=== PATIENT | female | born 1985 | race Caucasian/White ===

== ENCOUNTER → 2019-01-17 | Outpatient (CLI) | payer OTHER ==
--- NOTE | 2019-01-17 20:44 | MR ---
EXAMINATION TYPE: MR lumbar spine wo con DATE OF EXAM: 01/17/2019 COMPARISON: Plain film 09/18/2015 HISTORY: Low back pain TECHNIQUE: Multiplanar, multisequence images of the lumbar spine were acquired. L1-L2: Normal disc appearance without desiccation. No herniation, protrusion or disc bulging. No ca nal stenosis is present. Foramina are patent bilaterally. L2-L3: Normal disc appearance without desiccation. No herniation, protrusion or disc bulging. No ca nal stenosis is present. Foramina are patent bilaterally. L3-L4: Normal disc appearance without desiccation. No herniation, protrusion or disc bulging. No ca nal stenosis is present. Foramina are patent bilaterally. L4-L5: Normal disc appearance without desiccation. No herniation, protrusion or disc bulging. No ca nal stenosis is present. Foramina are patent bilaterally. L5-S1: Minimal posterior broad-based disc bulge is present, no significant central stenosis or forami nal encroachment. Lumbar segments are intact. No paraspinal masses are identified. Conus medullaris has a normal appe arance, T12-L1 there is a questionable focus of increased signal in the right side of the spinal cord on T2-weighted sequences in the axial data set. Pedicle on the right at L5 shows increased signal on T1 and T2-weighted sequences likely due to hemangioma. IMPRESSION: Possible cord signal abnormality. Consider postcontrast imaging. Mild degenerative disc disease.
--- NOTE | 2019-01-17 21:27 | MR ---
MR right hip HISTORY: Right hip pain Multiplanar multisequence imaging through the right hip or graph no comparisons There is some mild increased signal present at the insertion of the gluteus tendon at the greater tub erosity. Minimal joint fluid is likely physiologic. Bone marrow signal is maintained. Articular carti jakub is normal. Acetabular labrum thought to be intact. Uterus and adnexal structures are normal. Conjoined tendons at the origin of the hamstring musculatur e are normal. No free fluid in the pelvis. No pelvic adenopathy. IMPRESSION: Findings may represent mild tendinosis at the gluteus medius tendon insertion.
== END | disposition home or self-care (01) ==
LOC: RADMRIMAIN 18:58
PROVIDERS: ATTEND Internal Medicine
DX: M51.36 Other intervertebral disc degeneration, lumbar region (principal); M25.551 Pain in right hip
CPT/HCPCS: 72148

== ENCOUNTER 2021-01-01 17:57 | Emergency (ER) | payer OTHER ==
[2021-01-01 18:13] VITALS: BP 134/86; PULSE 110; TEMP 98.7
[2021-01-01] MEDS ORDERED: ALBUTEROL HFA INHALER INHALATION STA (18:49)
--- NOTE | 2021-01-01 18:56 | ED ---
General Adult HPI - General Chief complaint: Upper Respiratory Infection Stated complaint: COVID+/increased SOB Time Seen by Provider: 01/01/21 18:35 Source: patient, RN notes reviewed Mode of arrival: ambulatory Limitations: no limitations - History of Present Illness Initial comments: patient is a pleasant 35-year-old female presenting to the emergency Department with complaints of cough and difficulty in breathing. Onset of symptoms was more than 8 days ago as she was diagnosed 8 days ago. Patient has cough that is dry. Patient has some difficulty in breathing. Patient is having fever and chills and myalgias. Patient has nasal congestion. Loss of smell. Patient had one episode of diarrhea. No nausea vomiting. Patient has been taking Tylenol for fever. Patient has also been taking zinc and vitamin C. - Related Data Previous Rx's Medication Instructions Recorded Albuterol Sulfate [Albuterol 2 puff INHALATION Q6H PRN #1 01/01/21 Sulfate Hfa] inhaler Allergies Allergy/AdvReac Type Severity Reaction Status Date / Time azithromycin Allergy Rash/Hives Verified 01/01/21 18:11 Sulfa (Sulfonamide Allergy Unknown Verified 01/01/21 18:11 Antibiotics) Review of Systems ROS Statement: Those systems with pertinent positive or pertinent negative responses have been documented in the HPI. ROS Other: All systems not noted in ROS Statement are negative. Constitutional: Reports: fever, chills Eyes: Denies: eye pain ENT: Denies: ear pain Respiratory: Reports: cough, dyspnea Cardiovascular: Denies: chest pain Endocrine: Reports: fatigue Gastrointestinal: Denies: abdominal pain, nausea, vomiting Genitourinary: Denies: dysuria Musculoskeletal: Denies: back pain Skin: Denies: rash Neurological: Denies: weakness Past Medical History Past Medical History: No Reported History History of Any Multi-Drug Resistant Organisms: None Reported Past Surgical History: Section Past Psychological History: No Psychological Hx Reported Smoking Status: Never smoker Past Alcohol Use History: None Reported, Occasional Past Drug Use History: None Reported General Exam Limitations: no limitations General appearance: alert, in no apparent distress Head exam: Present: atraumatic Eye exam: Present: normal appearance Neck exam: Present: normal inspection Respiratory exam: Present: normal lung sounds bilaterally Cardiovascular Exam: Present: tachycardia GI/Abdominal exam: Present: soft. Absent: tenderness Extremities exam: Present: normal inspection. Absent: pedal edema, calf tenderness Neurological exam: Present: alert Psychiatric exam: Present: normal affect, normal mood Skin exam: Present: normal color Course Vital Signs 01/01/21 01/01/21 18:11 19:10 Temperature 98.7 F Pulse Rate 110 H Respiratory 18 20 Rate Blood Pressure 134/86 O2 Sat by Pulse 96 Oximetry Medical Decision Making - Medical Decision Making Patient reevaluated and updated. Patient states she does feel good enough to go home and requests discharge. - Radiology Data Radiology results: image reviewed (Chest x-ray does show bilateral Fluffy infiltrates) Disposition Clinical Impression: Pneumonia due to COVID-19 virus Disposition: HOME SELF-CARE Condition: Stable Instructions (If sedation given, give patient instructions): Upper Respiratory Infection (ED) Additional Instructions: Continue vitamin C and zinc. Please add vitamin D 5000 international units daily. Continue [id number] Tylenol as needed. Prescription for inhaler has been sent to pharmacy, [id number]. Return for difficulty in breathing, uncontrolled fevers, not tolerating fluids, worsening symptoms or other concerns. Prescriptions: Albuterol Sulfate [Albuterol Sulfate Hfa] 2 puff INHALATION Q6H PRN #1 inhaler PRN Reason: Shortness Of Breath Is patient prescribed a controlled substance at d/c from ED?: No Referrals: Joe Ventura MD [Primary Care Provider] - 1-2 days Time of Disposition: 19:35
--- NOTE | 2021-01-01 19:03 | XR ---
EXAMINATION TYPE: XR chest 2V DATE OF EXAM: 01/01/2021 COMPARISON: NONE HISTORY: Fever and cough. Positive Covid. TECHNIQUE: Frontal and lateral views of the chest are obtained. FINDINGS: There are bilateral mild to moderate patchy opacities in the mid to lower lungs. No pleura l effusion, or pneumothorax seen. The cardiac silhouette size is within normal limits. The osseous structures are intact. IMPRESSION: Mild to moderate bilateral infiltrates.
[2021-01-01 19:12] VITALS: RESP 20
== END 2021-01-01 20:15 | disposition home or self-care (01) ==
LOC: EC 17:57
DX: U07.1 COVID-19 (principal); J12.82 Pneumonia due to coronavirus disease 2019; Z88.1 Allergy status to other antibiotic agents; Z88.2 Allergy status to sulfonamides
CPT/HCPCS: 71046; 94640; 99285

== ENCOUNTER 2021-09-16 17:37 | Emergency (ER) | payer OTHER ==
[2021-09-16 17:49] VITALS: TEMP 98.8
[2021-09-16] MEDS ORDERED: SODIUM CHLORIDE 0.9% 1,000 ML IV STA (19:50)
[2021-09-16 20:15] LABS: Basophils # (A) 0.1 k/uL (0-0.2); Basophils % (A) 0 %; Eosinophils # (A) 0.1 k/uL (0-0.7); Eosinophils % (A) 1 %; HCT 42.7 % (34.0-46.0); HGB 13.7 gm/dL (11.4-16.0); Lymphocytes % (A) 27 %; MCHC 32.1 g/dL (31.0-37.0); MCV 90.4 fL (80.0-100.0); Mean Platelet Volume 6.7; Monocytes # (A) 0.4 k/uL (0-1.0); Monocytes % (A) 3 %; Neutrophils # (A) 7.3 k/uL (1.3-7.7); Neutrophils % (A) 66 %; Platelet Count 435 k/uL (150-450); RBC 4.73 m/uL (3.80-5.40); RDW 12.1 % (11.5-15.5)
[2021-09-16 20:24] LABS: ALT 17 U/L (4-34); AST 20 U/L (14-36); African American GFR (CKD) >90 (>60 ml/min/1.73 sqM); Albumin 4.6 g/dL (3.5-5.0); Alkaline Phosphatase 75 U/L (38-126); Anion Gap 7 mmol/L; Blood Urea Nitrogen 15 mg/dL (7-17); Calcium 9.8 mg/dL (8.4-10.2); Carbon Dioxide 26 mmol/L (22-30); Chloride 107 mmol/L (98-107); Glucose 119 mg/dL (74-99); Lipase 76 U/L (23-300); Magnesium 2.1 mg/dL (1.6-2.3); Non-African American GFR(CKD) >90 (>60 ml/min/1.73 sqM); Potassium 4.3 mmol/L (3.5-5.1); Sodium 140 mmol/L (137-145); Total Bilirubin 0.3 mg/dL (0.2-1.3); Total Protein 7.9 g/dL (6.3-8.2)
[2021-09-16 20:40] LABS: HCG,Quantitative Serum <2.4 mIU/mL
--- NOTE | 2021-09-16 20:40 | ED ---
GI Bleed HPI - General Chief complaint: GI Bleed Stated complaint: Rectal Bleeding Time Seen by Provider: 09/16/21 19:32 Source: patient, RN notes reviewed Mode of arrival: ambulatory Limitations: no limitations - History of Present Illness Initial comments: Patient is a 36-year-old female that presents emergency room complaining of bright red blood per rectum 3 days. She notes that yesterday which with the bathroom to urinate she felt pressure in her rectum and then noted blood in the toilet and on the toilet paper. She notes that this is the first time this has happened. She notes that she does not have a history of hemorrhoids diverticulosis or other GI bleeds. She notes minimal abdominal discomfort in the lower abdomen. She is otherwise well-appearing in no apparent distress or pain. She denied chest pain shortness breath headache nausea vomiting diarrhea constipation fever fatigue chills. - Related Data Home Medications Medication Instructions Recorded Confirmed Vitamin C/Biotin [Hair, Skin and 1 tab PO DAILY 09/16/21 09/16/21 Nails Chew] Allergies Allergy/AdvReac Type Severity Reaction Status Date / Time azithromycin Allergy Rash/Hives Verified 09/16/21 20:39 Sulfa (Sulfonamide Allergy Unknown Verified 09/16/21 20:39 Antibiotics) Review of Systems ROS Statement: Those systems with pertinent positive or pertinent negative responses have been documented in the HPI. ROS Other: All systems not noted in ROS Statement are negative. Past Medical History Past Medical History: No Reported History Additional Past Medical History / Comment(s): CP History of Any Multi-Drug Resistant Organisms: None Reported Past Surgical History: Section Past Psychological History: No Psychological Hx Reported Smoking Status: Never smoker Past Alcohol Use History: Occasional Past Drug Use History: None Reported General Exam Limitations: no limitations General appearance: alert, in no apparent distress Head exam: Present: atraumatic, normocephalic, normal inspection Eye exam: Present: normal appearance, PERRL, EOMI. Absent: scleral icterus, c onjunctival injection, periorbital swelling ENT exam: Present: normal exam, mucous membranes moist Neck exam: Present: normal inspection Respiratory exam: Present: normal lung sounds bilaterally. Absent: respiratory distress, wheezes, rales, rhonchi, stridor GI/Abdominal exam: Present: soft, tenderness (Minimal lower abdomen), normal bowel sounds. Absent: distended, guarding, rebound, rigid Rectal exam: Present: normal inspection, normal rectal tone, hemorrhoids Extremities exam: Present: normal inspection, full ROM, normal capillary refill. Absent: tenderness, pedal edema, joint swelling, calf tenderness Neurological exam: Present: alert, oriented X3 Psychiatric exam: Present: normal affect, normal mood Skin exam: Present: warm, dry, intact, normal color. Absent: rash Course Vital Signs 09/16/21 17:47 Temperature 98.8 F Pulse Rate 93 Respiratory 20 Rate Blood Pressure 154/97 O2 Sat by Pulse 97 Oximetry Medical Decision Making - Medical Decision Making 36-year-old female complaining of bright red blood per rectum 3 days per Labs, CT abdomen and pelvis, 1 L normal saline ordered. Labs unremarkable. Computed tomography scan negative for any acute abdominal process. Occult blood test positive per On physical exam there was internal hemorrhoids. Patient was informed that if these get irritated a complete. Case discussed with Dr. Taylor, patient discharge home with follow-up primary care. - Lab Data Result diagrams: 09/16/21 19:58 09/16/21 19:58 Lab Results 09/16/21 09/16/21 09/16/21 Range/Units 19:58 19:58 19:58 WBC 11.0 H (3.8-10.6) k/uL RBC 4.73 (3.80-5.40) m/uL Hgb 13.7 (11.4-16.0) gm/dL Hct 42.7 (34.0-46.0) % MCV 90.4 (80.0-100.0) fL MCH 29.0 (25.0-35.0) pg MCHC 32.1 (31.0-37.0) g/dL RDW 12.1 (11.5-15.5) % Plt Count 435 (150-450) k/uL MPV 6.7 Neutrophils % 66 % Lymphocytes % 27 % Monocytes % 3 % Eosinophils % 1 % Basophils % 0 % Neutrophils # 7.3 (1.3-7.7) k/uL Lymphocytes # 3.0 (1.0-4.8) k/uL Monocytes # 0.4 (0-1.0) k/uL Eosinophils # 0.1 (0-0.7) k/uL Basophils # 0.1 (0-0.2) k/uL APTT 24.8 (22.0-30.0) sec Sodium (137-145) mmol/L Potassium (3.5-5.1) mmol/L Chloride (98-107) mmol/L Carbon Dioxide (22-30) mmol/L Anion Gap mmol/L BUN (7-17) mg/dL Creatinine (0.52-1.04) mg/dL Est GFR (CKD-EPI)AfAm (>60 ml/min/1.73 sqM) Est GFR (CKD-EPI)NonAf (>60 ml/min/1.73 sqM) Glucose (74-99) mg/dL Calcium (8.4-10.2) mg/dL Magnesium (1.6-2.3) mg/dL Total Bilirubin (0.2-1.3) mg/dL AST (14-36) U/L ALT (4-34) U/L Alkaline Phosphatase (38-126) U/L Troponin I (0.000-0.034) ng/mL Total Protein (6.3-8.2) g/dL Albumin (3.5-5.0) g/dL Lipase (23-300) U/L HCG, Quant mIU/mL Stool Occult Blood Positive H (Negative) 09/16/21 09/16/21 Range/Units 19:58 19:58 WBC (3.8-10.6) k/uL RBC (3.80-5.40) m/uL Hgb (11.4-16.0) gm/dL Hct (34.0-46.0) % MCV (80.0-100.0) fL MCH (25.0-35.0) pg MCHC (31.0-37.0) g/dL RDW (11.5-15.5) % Plt Count (150-450) k/uL MPV Neutrophils % % Lymphocytes % % Monocytes % % Eosinophils % % Basophils % % Neutrophils # (1.3-7.7) k/uL Lymphocytes # (1.0-4.8) k/uL Monocytes # (0-1.0) k/uL Eosinophils # (0-0.7) k/uL Basophils # (0-0.2) k/uL APTT (22.0-30.0) sec Sodium 140 (137-145) mmol/L Potassium 4.3 (3.5-5.1) mmol/L Chloride 107 (98-107) mmol/L Carbon Dioxide 26 (22-30) mmol/L Anion Gap 7 mmol/L BUN 15 (7-17) mg/dL Creatinine 0.53 (0.52-1.04) mg/dL Est GFR (CKD-EPI)AfAm >90 (>60 ml/min/1.73 sqM) Est GFR (CKD-EPI)NonAf >90 (>60 ml/min/1.73 sqM) Glucose 119 H (74-99) mg/dL Calcium 9.8 (8.4-10.2) mg/dL Magnesium 2.1 (1.6-2.3) mg/dL Total Bilirubin 0.3 (0.2-1.3) mg/dL AST 20 (14-36) U/L ALT 17 (4-34) U/L Alkaline Phosphatase 75 (38-126) U/L Troponin I <0.012 (0.000-0.034) ng/mL Total Protein 7.9 (6.3-8.2) g/dL Albumin 4.6 (3.5-5.0) g/dL Lipase 76 (23-300) U/L HCG, Quant <2.4 mIU/mL Stool Occult Blood (Negative) - Radiology Data Radiology results: report reviewed, image reviewed CT abdomen and pelvis: Right ovarian cyst. No solid pelvic mass. I do not see cause for rectal bleeding. No evidence for clots. Disposition Clinical Impression: Hemorrhoid, Bright red blood per rectum Disposition: HOME SELF-CARE Condition: Stable Instructions (If sedation given, give patient instructions): Gastrointestinal Bleeding (ED) Additional Instructions: Please return to the Emergency Department if symptoms worsen or any other concerns. Follow-up with primary care 1-2 days. Follow-up with GI specialist this is possible. Increase dietary fiber in oral fluids. Is patient prescribed a controlled substance at d/c from ED?: No Referrals: Joe Ventura MD [Primary Care Provider] - 1-2 days Time of Disposition: 22:56
--- NOTE | 2021-09-16 21:42 | CT ---
EXAMINATION TYPE: CT abdomen pelvis w con DATE OF EXAM: 09/16/2021 COMPARISON: None HISTORY: Rectal bleeding, clotting CT DLP: 597 mGycm Automated exposure control for dose reduction was used. CONTRAST: Performed with IV Contrast, patient injected with 100 mL of Isovue 300. Images obtained from the diaphragm to the floor the pelvis with IV contrast. Lung bases are clear. There is no pleural effusion. Heart size is normal. There is no pericardial eff usion. Liver spleen stomach pancreas gallbladder appear intact. Bile ducts are not dilated. There is no adrenal mass. Kidneys show satisfactory contrast opacification. There is no hydronephrosi s. Delayed images show normal renal excretion. There is no retroperitoneal adenopathy. Ureters are no t dilated. Bladder distends smoothly. There is 1.7 cm cyst on the right ovary. Uterus is anteverted. There is no free fluid in the pelvis. There is no inguinal hernia. Lumbar vertebra have normal spacing and alignment. Posterior elements are intact. The bony pelvis is intact. Hip joints are intact. Facet joints are intact. There is no mesenteric edema. There is no ascites or free air. There is no bowel obstruction. Appendi x appears normal. IMPRESSION: Right ovarian cyst. No solid pelvic mass. I do not see a cause for rectal bleeding. No evidence of co litis.
[2021-09-17 00:47] VITALS: BP 114/82; PULSE 89; RESP 18
== END 2021-09-16 23:25 | disposition home or self-care (01) ==
LOC: EC 17:37
DX: K64.8 Other hemorrhoids (principal); K62.5 Hemorrhage of anus and rectum; Z88.2 Allergy status to sulfonamides
CPT/HCPCS: 36415; 80053; 83690; 83735; 84484; 85025; 85730; 82272; 84702; 74177; 99285; 96360; Q9967

== ENCOUNTER 2023-09-15 11:18 | Emergency (ER) | payer OTHER ==
[2023-09-15 12:09] LABS: Basophils % (A) 0 %; Eosinophils # (A) 0.1 k/uL (0-0.7); Eosinophils % (A) 1 %; HGB 12.2 gm/dL (11.4-16.0); Lymphocytes # (A) 2.4 k/uL (1.0-4.8); Lymphocytes % (A) 25 %; MCH 29.4 pg (25.0-35.0); MCV 89.1 fL (80.0-100.0); Mean Platelet Volume 7.3; Monocytes # (A) 0.4 k/uL (0-1.0); Monocytes % (A) 4 %; Neutrophils # (A) 6.5 k/uL (1.3-7.7); Neutrophils % (A) 69 %; Platelet Count 414 k/uL (150-450); RBC 4.16 m/uL (3.80-5.40); RDW 12.7 % (11.5-15.5); WBC 9.4 k/uL (3.8-10.6)
[2023-09-15 12:18] LABS: ALT 17 U/L (4-34); AST 18 U/L (14-36); African American GFR (CKD) >90 (>60 ml/min/1.73 sqM); Alkaline Phosphatase 77 U/L (38-126); Anion Gap 10 mmol/L; Blood Urea Nitrogen 14 mg/dL (7-17); Carbon Dioxide 27 mmol/L (22-30); Chloride 103 mmol/L (98-107); Glucose 138 mg/dL (74-99); Non-African American GFR(CKD) >90 (>60 ml/min/1.73 sqM); Potassium 3.6 mmol/L (3.5-5.1); Sodium 140 mmol/L (137-145); Total Bilirubin 0.4 mg/dL (0.2-1.3)
[2023-09-15 12:31] LABS: Amorphous Sediment,Urine Rare /hpf; Appearance,Urine Clear (Clear); Bacteria,Urine Moderate /hpf; Color,Urine Yellow; Glucose,Urine (UA) Negative (Negative); Ketones,Urine Negative (Negative); Mucus,Urine Many /hpf; PH, Urine 8.5 (5.0-8.0); Protein,Urine 1+ (Negative); RBC,Urine 3 /hpf (0-5); Squamous Epithelial Cell,Urine 39 /hpf (0-4)
[2023-09-15 12:32] LABS: Bilirubin,Urine Negative (Negative); Blood,Urine Negative (Negative); Leukocyte Esterase,Urine Negative (Negative); Nitrite,Urine Negative (Negative); Urobilinogen,Urine <2.0 mg/dL (<2.0)
[2023-09-15] MEDS ORDERED: MAG HYDROX/AL HYDROX/SIMETH 30 ML, HYOSCYAMINE ELIXIR 10 ML, LIDOCAINE 2% GLYDO JELLY 1... PO STA ×3 (13:25)
[2023-09-15] MEDS ORDERED: KETOROLAC 15 MG/ML 1 ML VIAL IM STA (13:26)
--- NOTE | 2023-09-15 14:16 | US ---
EXAMINATION TYPE: US gallbladder DATE OF EXAM: 09/15/2023 COMPARISON: NONE CLINICAL INDICATION: Female, 38 years old with history of pain/burning x 1-2 week; TECHNIQUE: Multiple sonographic images of the right upper quadrant are obtained. FINDINGS: EXAM MEASUREMENTS: Liver Length: 15.41 cm Gallbladder Wall: 0.17 cm CBD: 0.21 cm Right Kidney: 11.57 x 4.40 x 5.04 cm [employer] NOTES:Tail of pancreas obscured by bowel gas, patient ate an hour ago - gallbladder not f ully distended. Pancreas: limited visualization Liver: wnl Gallbladder: not fully distended. No acute cholecystitis evident by ultrasound Evidence for sonographic Call's sign: no CBD: wnl Right Kidney: wnl IMPRESSION: 1. No suspicious acute changes right upper quadrant ultrasound.
--- NOTE | 2023-09-15 15:52 | ED ---
Abdominal Pain HPI - General Chief Complaint: Abdominal Pain Stated Complaint: Abd pain Time Seen by Provider: 09/15/23 12:19 Source: patient Mode of arrival: ambulatory Limitations: no limitations - History of Present Illness Initial Comments: 38-year-old female presents to emergency department with reported epigastric pain. States it's been going on for the past couple of weeks. It is worse with food intake. States that she eats a lot of fast food and spicy food. Every time she eats she begins having the right upper quadrant pain. She was seen at an urgent care today. They did place her on nausea medications however she states she did not pick him up. She wanted more workup and therefore came to the emergency room for evaluation. She denies vomiting. No changes in her bowel or bladder habits. No concern for . No other alleviating, precipitating or modifying factors - Related Data Home Medications Medication Instructions Recorded Confirmed Vitamin C/Biotin [Hair, Skin and 1 tab PO DAILY 09/16/21 09/16/21 Nails Chew] Previous Rx's Medication Instructions Recorded Omeprazole 20 mg PO DAILY #30 tab 09/15/23 Sucralfate [Carafate] 1 gm PO ACHS #56 tablet 09/15/23 Allergies Allergy/AdvReac Type Severity Reaction Status Date / Time azithromycin Allergy Rash/Hives Verified 09/15/23 11:34 Sulfa (Sulfonamide Allergy Unknown Verified 09/15/23 11:34 Antibiotics) Review of Systems ROS Statement: Those systems with pertinent positive or pertinent negative responses have been documented in the HPI. ROS Other: All systems not noted in ROS Statement are negative. Past Medical History Past Medical History: No Reported History Additional Past Medical History / Comment(s): CP History of Any Multi-Drug Resistant Organisms: None Reported Past Surgical History: Section Past Psychological History: No Psychological Hx Reported Smoking Status: Never smoker Past Alcohol Use History: Occasional Past Drug Use History: None Reported General Exam Limitations: no limitations General appearance: alert, in no apparent distress Head exam: Present: atraumatic, normocephalic, normal inspection Eye exam: Present: normal appearance, PERRL, EOMI. Absent: scleral icterus, conjunctival injection, periorbital swelling ENT exam: Present: normal exam, mucous membranes moist Neck exam: Present: normal inspection. Absent: tenderness, meningismus, lymphadenopathy Respiratory exam: Present: normal lung sounds bilaterally. Absent: respiratory distress, wheezes, rales, rhonchi, stridor Cardiovascular Exam: Present: regular rate, normal rhythm, normal heart sounds. Absent: systolic murmur, diastolic murmur, rubs, gallop, clicks GI/Abdominal exam: Present: soft, normal bowel sounds. Absent: distended, tenderness, guarding, rebound, rigid Extremities exam: Present: normal inspection, full ROM, normal capillary refill. Absent: tenderness, pedal edema, joint swelling, calf tenderness Back exam: Present: normal inspection Neurological exam: Present: alert, oriented X3, CN II-XII intact Psychiatric exam: Present: normal affect, normal mood Skin exam: Present: warm, dry, intact, normal color. Absent: rash Course Vital Signs 09/15/23 09/15/23 11:32 16:37 Temperature 98.6 F 98.1 F Pulse Rate 91 77 Respiratory 18 16 Rate Blood Pressure 138/83 118/81 O2 Sat by Pulse 100 99 Oximetry Medical Decision Making - Medical Decision Making Was pt. sent in by a medical professional or institution (, PA, DIGITAL ART DIRECTOR, urgent care, hospital, or residential...) When possible be specific @ -No Did you speak to anyone other than the patient for history (EMS, parent, family, police, friend...)? What history was obtained from this source @ -No Did you review nursing and triage notes (agree or disagree)? Why? @ -I reviewed and agree with nursing and triage notes Were old charts reviewed (outside hosp., previous admission, EMS record, old EKG, old radiological studies, urgent care reports/EKG's, residential records)? Report findings @ -No old charts were reviewed Differential Diagnosis (chest pain, altered mental status, abdominal pain women, abdominal pain men, vaginal bleeding, weakness, fever, dyspnea, syncope, headache, dizziness, GI bleed, back pain, seizure, CVA, palpatations, mental health, musculoskeletal)? @ -Differential Abdominal Pain Women: Appendicitis, Cholecystitis, diverticulosis, ischemic bowel, pancreatitis, hepatitis, UTI, gastroenteritis, AAA, incarcerated hernia, bowel obstruction, constipation, inflammatory bowel, hepatitis, peptic ulcer disease, splenic infarction, perforated viscus, vulvitis, ovarian torsion, PID, kidney stone, placenta abruption, this is not meant to be an all-inclusive list EKG interpreted by me (3pts min.). @ -Not done X-rays interpreted by me (1pt min.). @ -None done CT interpreted by me (1pt min.). @ -None done U/S interpreted by me (1pt. min.). @ -Yes and demonstrates no acute abnormalities What testing was considered but not performed or refused? (CT, X-rays, U/S, labs)? Why? @ -None What meds were considered but not given or refused? Why? @ -None Did you discuss the management of the patient with other professionals (professionals i.e. , PA, DIGITAL ART DIRECTOR, lab, RT, psych nurse, protective services social worker, clay artist, teacher, photographic intelligence officer, case investigator)? Give summary @ -No Was smoking cessation discussed for >3mins.? @ -No Was critical care preformed (if so, how long)? @ -No Were there social determinants of health that impacted care today? How? (Homelessness, low income, unemployed, alcoholism, drug addiction, transportation, low edu. Level, literacy, decrease access to med. care, long-term, rehab)? @ -No Was there de-escalation of care discussed even if they declined (Discuss DNR or withdrawal of care, Hospice)? DNR status @ -No What co-morbidities impacted this encounter? (DM, HTN, Smoking, COPD, CAD, Cancer, CVA, ARF, Chemo, Hep., AIDS, mental health diagnosis, sleep apnea, morbid obesity)? @ -None Was patient admitted / discharged? Hospital course, mention meds given and route, prescriptions, significant lab abnormalities, going to OR and other pertinent info. @ -Upon arrival patient placed in room 33. There are history of physical exam was performed. She was given pain medications. Ultrasound is performed which is negative. At this time the patient is stable for discharge home. Did re commend a HIDA scan. She will follow up with her primary care doctor to have this obtained. They also need an EGD. She'll be started on Carafate and omeprazole to see if it helps her symptoms. Return for any new or worsening symptoms. Patient discharged in stable condition Undiagnosed new problem with uncertain prognosis? @ -yes Drug Therapy requiring intensive monitoring for toxicity (Heparin, Nitro, Insulin, Cardizem)? @ -No Were any procedures done? @ -No Diagnosis/symptom? @ -Acute epigastric abdominal pain Acute, or Chronic, or Acute on Chronic? @ -Acute Uncomplicated (without systemic symptoms) or Complicated (systemic symptoms)? @ -Complicated Side effects of treatment? @ -No Exacerbation, Progression, or Severe Exacerbation? @ -No Poses a threat to life or bodily function? How? (Chest pain, USA, ID, pneumonia, PE, COPD, DKA, ARF, appy, cholecystitis, CVA, Diverticulitis, Homicidal, Suicidal, threat to staff... and all critical care pts) @ -No - Lab Data Result diagrams: 09/15/23 11:37 09/15/23 11:37 Lab Results 09/15/23 09/15/23 09/15/23 Range/Units 11:37 11:37 11:37 WBC 9.4 (3.8-10.6) k/uL RBC 4.16 (3.80-5.40) m/uL Hgb 12.2 (11.4-16.0) gm/dL Hct 37.0 (34.0-46.0) % MCV 89.1 (80.0-100.0) fL MCH 29.4 (25.0-35.0) pg MCHC 33.0 (31.0-37.0) g/dL RDW 12.7 (11.5-15.5) % Plt Count 414 (150-450) k/uL MPV 7.3 Neutrophils % 69 % Lymphocytes % 25 % Monocytes % 4 % Eosinophils % 1 % Basophils % 0 % Neutrophils # 6.5 (1.3-7.7) k/uL Lymphocytes # 2.4 (1.0-4.8) k/uL Monocytes # 0.4 (0-1.0) k/uL Eosinophils # 0.1 (0-0.7) k/uL Basophils # 0.0 (0-0.2) k/uL Sodium 140 (137-145) mmol/L Potassium 3.6 (3.5-5.1) mmol/L Chloride 103 (98-107) mmol/L Carbon Dioxide 27 (22-30) mmol/L Anion Gap 10 mmol/L BUN 14 (7-17) mg/dL Creatinine 0.55 (0.52-1.04) mg/dL Est GFR (CKD-EPI)AfAm >90 (>60 ml/min/1.73 sqM) Est GFR (CKD-EPI)NonAf >90 (>60 ml/min/1.73 sqM) Glucose 138 H (74-99) mg/dL Calcium 9.0 (8.4-10.2) mg/dL Total Bilirubin 0.4 (0.2-1.3) mg/dL AST 18 (14-36) U/L ALT 17 (4-34) U/L Alkaline Phosphatase 77 (38-126) U/L Total Protein 7.0 (6.3-8.2) g/dL Albumin 4.0 (3.5-5.0) g/dL Urine Color Yellow Urine Appearance Clear (Clear) Urine pH 8.5 H (5.0-8.0) Ur Specific [place] 1.020 (1.001-1.035) Urine Protein 1+ (Negative) Urine Glucose (UA) Negative (Negative) Urine Ketones Negative (Negative) Urine Blood Negative (Negative) Urine Nitrite Negative (Negative) Urine Bilirubin Negative (Negative) Urine Urobilinogen <2.0 (<2.0) mg/dL Ur Leukocyte Esterase Negative (Negative) Urine RBC 3 (0-5) /hpf Ur Squamous Epith Cells 39 H (0-4) /hpf Amorphous Sediment Rare H (None) /hpf Urine Bacteria Moderate H (None) /hpf Urine Mucus Many H (None) /hpf Urine HCG, Qual (Not Detectd) 09/15/23 Range/Units 11:37 WBC (3.8-10.6) k/uL RBC (3.80-5.40) m/uL Hgb (11.4-16.0) gm/dL Hct (34.0-46.0) % MCV (80.0-100.0) fL MCH (25.0-35.0) pg MCHC (31.0-37.0) g/dL RDW (11.5-15.5) % Plt Count (150-450) k/uL MPV Neutrophils % % Lymphocytes % % Monocytes % % Eosinophils % % Basophils % % Neutrophils # (1.3-7.7) k/uL Lymphocytes # (1.0-4.8) k/uL Monocytes # (0-1.0) k/uL Eosinophils # (0-0.7) k/uL Basophils # (0-0.2) k/uL Sodium (137-145) mmol/L Potassium (3.5-5.1) mmol/L Chloride (98-107) mmol/L Carbon Dioxide (22-30) mmol/L Anion Gap mmol/L BUN (7-17) mg/dL Creatinine (0.52-1.04) mg/dL Est GFR (CKD-EPI)AfAm (>60 ml/min/1.73 sqM) Est GFR (CKD-EPI)NonAf (>60 ml/min/1.73 sqM) Glucose (74-99) mg/dL Calcium (8.4-10.2) mg/dL Total Bilirubin (0.2-1.3) mg/dL AST (14-36) U/L ALT (4-34) U/L Alkaline Phosphatase (38-126) U/L Total Protein (6.3-8.2) g/dL Albumin (3.5-5.0) g/dL Urine Color Urine Appearance (Clear) Urine pH (5.0-8.0) Ur Specific [place] (1.001-1.035) Urine Protein (Negative) Urine Glucose (UA) (Negative) Urine Ketones (Negative) Urine Blood (Negative) Urine Nitrite (Negative) Urine Bilirubin (Negative) Urine Urobilinogen (<2.0) mg/dL Ur Leukocyte Esterase (Negative) Urine RBC (0-5) /hpf Ur Squamous Epith Cells (0-4) /hpf Amorphous Sediment (None) /hpf Urine Bacteria (None) /hpf Urine Mucus (None) /hpf Urine HCG, Qual Not Detected (Not Detectd) Disposition Clinical Impression: Epigastric pain Disposition: HOME SELF-CARE Condition: Stable Instructions (If sedation given, give patient instructions): Epigastric Pain (ED) Additional Instructions: Please take the medications as directed. Eat a bland dietno foods high in fat, spicy foods, alcohol or any medications that say NSAID (Aleve, Advil or Motrin). You may take Tylenol. You should have a HIDA scan to see how your gallbladder functions. Have your primary care doctor order this. If this is normal then I recommend an EGD. Return for any new or worsening symptoms Prescriptions: Sucralfate [Carafate] 1 gm PO ACHS #56 tablet Omeprazole 20 mg PO DAILY #30 tab Is patient prescribed a controlled substance at d/c from ED?: No Referrals: Joe Ventura MD [Primary Care Provider] - 1-2 days Jaqueline Bryant MD [STAFF PHYSICIAN] - 1-2 days Time of Disposition: 15:52
[2023-09-15 16:50] VITALS: BP 118/81; PULSE 77; RESP 16; TEMP 98.1
== END 2023-09-15 16:46 | disposition home or self-care (01) ==
LOC: EC 11:18
DX: R10.13 Epigastric pain (principal); Z88.2 Allergy status to sulfonamides; Z88.1 Allergy status to other antibiotic agents
CPT/HCPCS: 36415; 76705; 80053; 81001; 81025; 85025; 99284

== ENCOUNTER 2025-04-12 12:07 | Emergency (ER) | payer OTHER ==
[2025-04-12 12:35] VITALS: TEMP 98.6
--- NOTE | 2025-04-12 12:59 | ED ---
Abdominal Pain HPI - General Chief Complaint: Abdominal Pain Stated Complaint: Abd pain Time Seen by Provider: 04/12/25 12:57 Source: patient, RN notes reviewed Mode of arrival: ambulatory Limitations: no limitations - History of Present Illness Initial Comments: Patient is a 39-year-old female with nonsignificant medical history presenting with 2 days of right lower quadrant pain. She states that 2 days ago she had some intermittent cramping and since then it has gotten worse. LMP 03/06 usually regular, had spotting for few hours 1 week ago but has not had her usual period. She denies any associated symptoms, aggravating or alleviating factors. History of tubal ligation at age 23. She denies fever/chills, nausea/vomiting, difficulty breathing, chest pain, bowel or bladder changes. - Related Data Home Medications Medication Instructions Recorded Confirmed Vitamin C/Biotin [Hair, Skin and 1 tab PO DAILY 09/16/21 09/16/21 Nails Chew] Previous Rx's Medication Instructions Recorded Omeprazole 20 mg PO DAILY #30 tab 09/15/23 Sucralfate [Carafate] 1 gm PO ACHS #56 tablet 09/15/23 Amoxic-Pot Clav 875-125Mg 1 tab PO TID 7 Days #21 tab 04/12/25 [Augmentin 875-125] Allergies Allergy/AdvReac Type Severity Reaction Status Date / Time azithromycin Allergy Rash/Hives Verified 04/12/25 12:35 Sulfa (Sulfonamide Allergy Unknown Verified 04/12/25 12:35 Antibiotics) Review of Systems ROS Statement: Those systems with pertinent positive or pertinent negative responses have been documented in the HPI. ROS Other: All systems not noted in ROS Statement are negative. Past Medical History Past Medical History: No Reported History Additional Past Medical History / Comment(s): CP History of Any Multi-Drug Resistant Organisms: None Reported Past Surgical History: Section Past Psychological History: No Psychological Hx Reported Smoking Status: Never smoker Past Alcohol Use History: Occasional Past Drug Use History: None Reported General Exam Limitations: no limitations General appearance: alert, in no apparent distress Head exam: Present: atraumatic Eye exam: Present: normal appearance Respiratory exam: Present: normal lung sounds bilaterally, accessory muscle use. Absent: respiratory distress, wheezes, rales, rhonchi Cardiovascular Exam: Present: regular rate, normal rhythm, normal heart sounds. Absent: systolic murmur, diastolic murmur GI/Abdominal exam: Present: soft, tenderness (RLQ, mild RUQ), normal bowel sounds. Absent: distended Extremities exam: Present: normal inspection, full ROM Neurological exam: Present: alert, oriented X3 Psychiatric exam: Present: normal affect, normal mood Skin exam: Present: warm, dry, intact Course Vital Signs 04/12/25 04/12/25 04/12/25 12:29 15:03 17:58 Temperature 98.6 F Pulse Rate 101 H 90 94 Respiratory 17 16 18 Rate Blood Pressure 164/88 126/92 129/94 O2 Sat by Pulse 97 98 96 Oximetry Medical Decision Making - Medical Decision Making Was pt. sent in by a medical professional or institution (, [facility], EHS ENGINEER, urgent care, hospital, or alf...) When possible be specific @ -No Did you speak to anyone other than the patient for history (EMS, parent, family, police, friend...)? What history was obtained from this source @ -No Did you review nursing and triage notes (agree or disagree)? Why? @ -I reviewed and agree with nursing and triage notes Were old charts reviewed (outside hosp., previous admission, EMS record, old EKG, old radiological studies, urgent care reports/EKG's, alf records)? Report findings @ -No old charts were reviewed Differential Diagnosis? @ -Differential Abdominal Pain Women: Appendicitis, Cholecystitis, diverticulosis, ischemic bowel, pancreatitis, hepatitis, UTI, gastroenteritis, AAA, incarcerated hernia, bowel obstruction, constipation, inflammatory bowel, hepatitis, peptic ulcer disease, splenic infarction, perforated viscus, vulvitis, ovarian torsion, PID, kidney stone, placenta abruption, this is not meant to be an all-inclusive list EKG interpreted by me (3pts min.). @ -As above X-rays interpreted by me (1pt min.). @ -None done CT interpreted by me (1pt min.). @ -No appendicitis, masses U/S interpreted by me (1pt. min.). @ -None done What testing was considered but not performed or refused? (CT, X-rays, U/S, labs)? Why? @ -None What meds were considered but not given or refused? Why? @ -None Did you discuss the management of the patient with other professionals (professionals i.e. , PA, EHS ENGINEER, lab, RT, psych nurse, social media marketing analyst, residential coordinator, teacher, employee service officer, comp field case manager)? Give summary @ -No Was smoking cessation discussed for >3mins.? @ -No Was critical care preformed (if so, how long)? @ -No Were there social determinants of health that impacted care today? How? ([place]yl[place] elessness, low income, unemployed, alcoholism, drug addiction, transportation, low edu. Level, literacy, decrease access to med. care, custodial, rehab)? @ -No Was there de-escalation of care discussed even if they declined (Discuss DNR or withdrawal of care, Hospice)? DNR status @ -No What co-morbidities impacted this encounter? (DM, HTN, Smoking, COPD, CAD, Cancer, CVA, ARF, Chemo, Hep., AIDS, mental health diagnosis, sleep apnea, morbid obesity)? @ -None Was patient admitted / discharged? Hospital course, mention meds given and route, prescriptions, significant lab abnormalities, going to OR and other pertinent info. @ -Patient is a 39-year-old female with no known past medical history presenting for 2 days of right lower quadrant pain described as intermittent but worsening. A CBC, CMP, urine test were obtained. Pelvic Doppler obtained. Morphine 4 mg IV given for pain. Urine hCG negative. Labs unremarkable. Ultrasound revealed normal appendix as well as normal right ovary no evidence for ovarian torsion, no pelvic free fluid or evident adnexal abnormality. CT abdomen/pelvis obtained. CT shows uncomplicated sigmoid colitis likely from an infectious/inflammatory process. Ibuprofen 600 mg PO given before discharge. Patient was provided with Augmentin prescription if fever or hematochezia develops. Patient discharged home with return precautions discussed. Recommend patient follow-up with PCP 1 to 2 days. Undiagnosed new problem with uncertain prognosis? @ -No Drug Therapy requiring intensive monitoring for toxicity (Heparin, Nitro, Insulin, Cardizem)? @ -No Were any procedures done? @ -No Diagnosis/symptom? @ -Abdominal pain Acute, or Chronic, or Acute on Chronic? @ -Acute Uncomplicated (without systemic symptoms) or Complicated (systemic symptoms)? @ -Uncomplicated Side effects of treatment? @ -No Exacerbation, Progression, or Severe Exacerbation? @ -No Poses a threat to life or bodily function? How? (Chest pain, [place], [place], pneumonia, PE, COPD, DKA, ARF, appy, cholecystitis, CVA, Diverticulitis, Homicidal, Suicidal, threat to staff... and all critical care pts) @ -No - Lab Data Result diagrams: 04/12/25 13:02 04/12/25 13:02 Lab Results 04/12/25 04/12/25 04/12/25 Range/Units 13:02 13:02 13:02 WBC 9.72 (4.50-10.00) 10*3/uL RBC 4.67 (4.10-5.20) 10*6/uL Hgb 13.3 (12.0-15.0) g/dL Hct 40.3 (37.2-46.3) % MCV 86.3 (80.0-97.0) fL MCH 28.5 (27.0-32.0) pg MCHC 33.0 (32.0-37.0) g/dL Plt Count 442 H (140-440) 10*3/uL MPV 8.8 L (9.5-12.2) fL Immature Gran % (Auto) 0.5 % Neutrophils % 58.4 % Lymphocytes % 31.8 % Monocytes % 8.2 % Eosinophils % 0.6 % Basophils % 0.5 % Immature Gran # 0.05 H (0.00-0.04) 10*3/uL Neutrophils # 5.67 (1.80-7.70) 10*3/uL Lymphocytes # 3.09 (0.90-5.00) 10*3/uL Monocytes # 0.80 (0.20-1.00) 10*3/uL Eosinophils # 0.06 (0.04-0.35) 10*3/uL Basophils # 0.05 (0.00-0.10) 10*3/uL PT 10.5 (10.0-12.5) sec INR 0.9 (<1.2) APTT 25.0 (22.0-30.0) sec Sodium (137-145) mmol/L Potassium (3.5-5.1) mmol/L Chloride (98-107) mmol/L Carbon Dioxide (22-30) mmol/L Anion Gap mmol/L BUN (7-17) mg/dL Creatinine (0.52-1.04) mg/dL Est GFR (CKD-EPI)AfAm (>60 ml/min/1.73 sqM) Est GFR (CKD-EPI)NonAf (>60 ml/min/1.73 sqM) Glucose (74-99) mg/dL Calcium (8.4-10.2) mg/dL Total Bilirubin (0.2-1.3) mg/dL AST (14-36) U/L ALT (4-34) U/L Alkaline Phosphatase (38-126) U/L Total Protein (6.3-8.2) g/dL Albumin (3.5-5.0) g/dL Urine Color Urine Appearance (Clear) Urine pH (5.0-8.0) Ur Specific [place] (1.001-1.035) Urine Protein (Negative) Urine Glucose (UA) (Negative) Urine Ketones (Negative) Urine Blood (Negative) Urine Nitrite (Negative) Urine Bilirubin (Negative) Urine Urobilinogen (<2.0) mg/dL Ur Leukocyte Esterase (Negative) Urine RBC (0-5) /hpf Urine WBC (0-5) /hpf Ur Squamous Epith Cells (0-4) /hpf Urine Bacteria (None) /hpf Urine Mucus (None) /hpf Urine HCG, Qual Not Detected (Not Detectd) 04/12/25 04/12/25 Range/Units 13:02 13:15 WBC (4.50-10.00) 10*3/uL RBC (4.10-5.20) 10*6/uL Hgb (12.0-15.0) g/dL Hct (37.2-46.3) % MCV (80.0-97.0) fL MCH (27.0-32.0) pg MCHC (32.0-37.0) g/dL Plt Count (140-440) 10*3/uL MPV (9.5-12.2) fL Immature Gran % (Auto) % Neutrophils % % Lymphocytes % % Monocytes % % Eosinophils % % Basophils % % Immature Gran # (0.00-0.04) 10*3/uL Neutrophils # (1.80-7.70) 10*3/uL Lymphocytes # (0.90-5.00) 10*3/uL Monocytes # (0.20-1.00) 10*3/uL Eosinophils # (0.04-0.35) 10*3/uL Basophils # (0.00-0.10) 10*3/uL PT (10.0-12.5) sec INR (<1.2) APTT (22.0-30.0) sec Sodium 139 (137-145) mmol/L Potassium 4.2 (3.5-5.1) mmol/L Chloride 103 (98-107) mmol/L Carbon Dioxide 24 (22-30) mmol/L Anion Gap 12 mmol/L BUN 15 (7-17) mg/dL Creatinine 0.61 (0.52-1.04) mg/dL Est GFR (CKD-EPI)AfAm >90 (>60 ml/min/1.73 sqM) Est GFR (CKD-EPI)NonAf >90 (>60 ml/min/1.73 sqM) Glucose 113 H (74-99) mg/dL Calcium 10.2 (8.4-10.2) mg/dL Total Bilirubin 0.5 (0.2-1.3) mg/dL AST 18 (14-36) U/L ALT 18 (4-34) U/L Alkaline Phosphatase 79 (38-126) U/L Total Protein 8.0 (6.3-8.2) g/dL Albumin 4.7 (3.5-5.0) g/dL Urine Color Yellow Urine Appearance Clear (Clear) Urine pH 6.5 (5.0-8.0) Ur Specific [place] 1.029 (1.001-1.035) Urine Protein Negative (Negative) Urine Glucose (UA) Negative (Negative) Urine Ketones Negative (Negative) Urine Blood Negative (Negative) Urine Nitrite Negative (Negative) Urine Bilirubin Negative (Negative) Urine Urobilinogen <2.0 (<2.0) mg/dL Ur Leukocyte Esterase Trace H (Negative) Urine RBC 1 (0-5) /hpf Urine WBC 2 (0-5) /hpf Ur Squamous Epith Cells 7 H (0-4) /hpf Urine Bacteria Rare H (None) /hpf Urine Mucus Few H (None) /hpf Urine HCG, Qual (Not Detectd) Disposition Clinical Impression: Abdominal pain Disposition: HOME SELF-CARE Condition: Stable Instructions (If sedation given, give patient instructions): Abdominal Pain (ED) Additional Instructions: Every disease is a spectrum and a small chance still exists that a serious condition could develop, for this reason, please monitor yourself closely for new, changing or worsening symptoms, symptoms that persist beyond 48 hours, fever, inability to tolerate/keep down fluids or your medications, inability to follow up with outpatient providers as instructed and should you experience these symptoms or should you have any further concerns for your wellbeing please return to the ED or call 911 immediately. Your pain can be treated with ibuprofen and acetaminophen. You can take up to 400-600 mg of ibuprofen (Advil, Motrin) 3 times daily (every 8 hours) but can also use lower doses if this relieves your pain. Some people prefer naproxen ( Aleve, Naprosyn) which can be taken in doses of 500 mg up to twice a day. Do not take both of these medicines together, and do not combine either with ketorolac (Toradol), meloxicam (Mobic), or indomethacin (Tivorbex). Some people can develop stomach discomfort with higher doses of either ibuprofen or naproxen, if this develops decrease your dose or stop taking it. If you need to take this dose daily for more than a week, please schedule an appointment for re- evaluation with your PCP. Please take these medications with food. You can take up to 1000 mg of acetaminophen (Tylenol) every 6 hours. Be careful as this is included in some medicines like Nyquil, [place], Percocet, Vicodin, STANBACK, Goody's Powders, and Excedrin. You can also use lidocaine patches for topical pain. You can purchase 4% patches over the counter at most drug stores. These can be helpful for pain from your muscles or bones. PLEASE call your primary care physician as soon as possible to arrange / discuss plan for followup appointment. Appointment in the next 1-3 days is strongly encouraged if possible. PLEASE let us know here before you leave if there is anything further we can do to be of any assistance. Take care and feel Better! Prescriptions: Amoxic-Pot Clav 875-125Mg [Augmentin 875-125] 1 tab PO TID 7 Days #21 tab Is patient prescribed a controlled substance at d/c from ED?: No Referrals: None,Stated [Primary Care Provider] - 1-2 days Erin Smith MD [Emergency Provider] - 1-2 days Time of Disposition: 17:34
[2025-04-12 13:12] LABS: Basophils # (A) 0.05 10*3/uL (0.00-0.10); Basophils % (A) 0.5 %; Eosinophils # (A) 0.06 10*3/uL (0.04-0.35); Eosinophils % (A) 0.6 %; HCT 40.3 % (37.2-46.3); HGB 13.3 g/dL (12.0-15.0); Lymphocytes # (A) 3.09 10*3/uL (0.90-5.00); Lymphocytes % (A) 31.8 %; MCH 28.5 pg (27.0-32.0); MCV 86.3 fL (80.0-97.0); Mean Platelet Volume 8.8 fL (9.5-12.2); Monocytes % (A) 8.2 %; Neutrophils # (A) 5.67 10*3/uL (1.80-7.70); Neutrophils % (A) 58.4 %; Platelet Count 442 10*3/uL (140-440); RBC 4.67 10*6/uL (4.10-5.20); RDW 12.7 % (11.5-14.5); WBC 9.72 10*3/uL (4.50-10.00)
[2025-04-12 13:28] LABS: ALT 18 U/L (4-34); AST 18 U/L (14-36); African American GFR (CKD) >90 (>60 ml/min/1.73 sqM); Albumin 4.7 g/dL (3.5-5.0); Alkaline Phosphatase 79 U/L (38-126); Anion Gap 12 mmol/L; Blood Urea Nitrogen 15 mg/dL (7-17); Calcium 10.2 mg/dL (8.4-10.2); Carbon Dioxide 24 mmol/L (22-30); Chloride 103 mmol/L (98-107); Glucose 113 mg/dL (74-99); Non-African American GFR(CKD) >90 (>60 ml/min/1.73 sqM); Potassium 4.2 mmol/L (3.5-5.1); Sodium 139 mmol/L (137-145); Total Bilirubin 0.5 mg/dL (0.2-1.3)
[2025-04-12 13:38] LABS: INR 0.9 (<1.2); Prothrombin Time 10.5 sec (10.0-12.5)
[2025-04-12] MEDS: MORPHINE SULFATE 4 MG/ML SYRINGE IVP STA (14:11)
--- NOTE | 2025-04-12 14:24 | US ---
EXAMINATION TYPE: US transvaginal plus Dopplers DATE OF EXAM: 04/12/2025 COMPARISON: None CLINICAL INDICATION: Female, 39 years old with history of RLQ pain; TECHNIQUE: Transvaginal (TV). Transvaginal grayscale sonographic images of the pelvis were acquired. Doppler imaging: Color Doppler Images were obtained. Spectral doppler images were obtained. FINDINGS: Date of LMP: 03/06/2025 EXAM MEASUREMENTS: Uterus: 8.9 x 3.9 x 4.5 cm Endometrial Stripe: 1.4 cm Right Ovary: 2.7 x 2.3 x 2.3 cm for a volume of 7.7 mL. 1. Uterus: Anteverted. Slightly heterogeneous myometrium. A scar is present. 2. Endometrium: Thickening to the upper limits of normal. 3. Right Ovary: wnl 4. Left Ovary: Obscured by overlying bowel gas Spectral, color and waveform doppler imaging shows good arterial and venous flow within the Right o vary; there is no evidence for ovarian torsion. 5. Bilateral Adnexa: wnl 6. Posterior cul-de-sac: wnl IMPRESSION: 1. Unable to visualize the left ovary. Right ovary appears normal without evidence for ovarian torsio n. 2. Endometrial stripe thickening to the upper limits of normal at 1.4 cm. This should correspond to t he late secretory phase of the menstrual cycle. 3. No pelvic free fluid or evident adnexal abnormality. [facility], , 04/12/2025 2:22 PM
--- NOTE | 2025-04-12 14:25 | US ---
EXAMINATION TYPE: US abdomen APPY DATE OF EXAM: 04/12/2025 COMPARISON: None CLINICAL INDICATION: Female, 39 years old with history of RLQ pain; RLQ pain TECHNIQUE: Multiple sonographic images of the right lower quadrant were obtained with graded compress ion with grayscale and color Doppler imaging. FINDINGS: APPENDIX AP Diameter (normal < 6mm): 4 mm Measured outer wall to outer wall. Is the appendix seen in its entirety from the proximal cecum to distal end: Yes Does the appendix wall appear hypervascular: No Is an appendicolith present: No Is there inflammatory changes or free fluid present: No IMPRESSION: A structure which seems to correspond to a normal appendix in the right lower quadrant is visualized. No sonographic features of acute appendicitis. [facility], , 04/12/2025 2:22 PM
[2025-04-12 15:26] LABS: Appearance,Urine Clear (Clear); Bacteria,Urine Rare /hpf; Bilirubin,Urine Negative (Negative); Blood,Urine Negative (Negative); Color,Urine Yellow; Glucose,Urine (UA) Negative (Negative); Ketones,Urine Negative (Negative); Leukocyte Esterase,Urine Trace (Negative); Mucus,Urine Few /hpf; Nitrite,Urine Negative (Negative); PH, Urine 6.5 (5.0-8.0); Protein,Urine Negative (Negative); RBC,Urine 1 /hpf (0-5); Specific Gravity,Urine 1.029 (1.001-1.035); Squamous Epithelial Cell,Urine 7 /hpf (0-4); Urobilinogen,Urine <2.0 mg/dL (<2.0); WBC,Urine 2 /hpf (0-5)
--- NOTE | 2025-04-12 16:49 | CT ---
EXAMINATION TYPE: CT abdomen pelvis wo con CT DLP: 383.5 mGycm, Automated exposure control for dose reduction was used. DATE OF EXAM: 04/12/2025 4:38 PM COMPARISON: Abdominal ultrasound at the 04/12/2025, transvaginal ultrasound 04/12/2025, gallbladder ult rasound 09/15/2023, CT abdomen and pelvis 09/16/2021 CLINICAL INDICATION:Female, 39 years old with history of RLQ pain; rt flank pain TECHNIQUE: Standard CT of the abdomen and pelvis without IV or oral contrast. Lack of IV or oral co ntrast limits evaluation of solid and hollow organ viscera. Coronal and sagittal reformats were perfo rmed. FINDINGS: LOWER CHEST: Unremarkable noncontrast appearance ABDOMEN LIVER: Unremarkable noncontrast appearance GALLBLADDER AND BILE DUCTS: Unremarkable noncontrast appearance PANCREAS: Unremarkable noncontrast appearance SPLEEN: Unremarkable noncontrast appearance ADRENAL GLANDS: Unremarkable noncontrast appearance. KIDNEYS AND URETERS: No evidence of hydronephrosis or renal calculus. No ureteral calculus or hydrour eter. PELVIS BLADDER: Unremarkable noncontrast appearance REPRODUCTIVE: Unremarkable noncontrast appearance ABDOMEN & PELVIS STOMACH AND BOWEL: Stomach and duodenum are unremarkable. The appendix is within normal limits. Stran ding changes of the sigmoid colon without diverticula. No evidence of bowel obstruction. PERITONEUM: No evidence of pneumoperitoneum or free fluid. VASCULATURE: No evidence of aortic aneurysm. Few pelvic phleboliths. MUSCULOSKELETAL: No acute osseous abnormalities LYMPH NODES: No gross evidence for lymphadenopathy. SOFT TISSUE/ABDOMINAL WALL: Unremarkable IMPRESSION: Uncomplicated sigmoid colitis likely from an infectious/inflammatory process. [facility], , 04/12/2025 4:47 PM
[2025-04-12] MEDS: IBUPROFEN 600 MG TAB PO STA (17:49)
[2025-04-12 18:01] VITALS: BP 129/94; PULSE 94; RESP 18
== END 2025-04-12 17:58 | disposition home or self-care (01) ==
LOC: EC 12:07
DX: R10.31 Right lower quadrant pain (principal); Z32.02 Encounter for pregnancy test, result negative; Z88.1 Allergy status to other antibiotic agents; Z88.2 Allergy status to sulfonamides
CPT/HCPCS: 36415; 80053; 85025; 85610; 85730; 81001; 81025; 93976; 76705; 76830; 74176; 99284; 96374; J2270